=== PATIENT | male | born 1995 | race Caucasian/White ===

== ENCOUNTER 2023-04-03 19:21 | Emergency (ER) | payer MEDICARE, MEDICAID, OTHER, SELFPAY ==
[2023-04-03 19:30] VITALS: BP 137/86; PULSE 111; RESP 18; TEMP 36.8; O2SAT 97; BMI 18.4
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
[2023-04-03 23:39] VITALS: BP 117/70; PULSE 110; RESP 18; TEMP 37.4; O2SAT 98
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
[2023-04-04 00:06] LABS: MANUAL DIFF FLAG NO
[2023-04-04 00:07] LABS: Basophils Absolute Auto 0.1 X10*3/uL (0.0-0.2); Basophils Percent Auto 0.6 % (0-2); Eosinophils Absolute Auto 0.1 X10*3/uL (0.0-0.4); Eosinophils Percent Auto 0.6 % (0-4); Hematocrit 48.3 % (42.0-52.0); Hemoglobin 17.3 g/dl (14.0-18.0); Imm Gran Abs Auto 0.06 X10*3/uL (0.00-0.03); Imm Gran Pct Auto 0.4 % (0.0-0.4); Lymphocytes Absolute Auto 3.3 X10*3/uL (1.2-4.9); Lymphocytes Percent Auto 23.4 % (20-40); Mean Corpuscular HGB Conc 35.8 g/dl (31.0-36.0); Mean Corpuscular Hemoglobin 30.4 pg (27.0-33.0); Mean Corpuscular Volume 84.7 fL (80.0-98.0); Mean Platelet Volume 9.1 fL (9.4-12.4); Monocytes Absolute Auto 0.7 X10*3/uL (0.1-1.2); Monocytes Percent Auto 4.7 % (2-11); Neutrophils Absolute Auto 9.8 x10*3/uL (2.0-8.3); Neutrophils Percent Auto 70.3 % (45-73); Platelet Count 384 X10*3/uL (160-400)
[2023-04-04 00:08] LABS: Appearance Urine Clear; Color Urine Yellow; Glucose Urine UA Negative (Negative); Leukocyte Esterase Urine Negative (Negative); Nitrite Urine Negative (Negative); Urine Blood Negative (Negative); Urine Ketones 15 mg/dL (Negative); Urine Protein Negative (Neg-Trace)
[2023-04-04] MEDS: cefTRIAXone sodium 500 MG, Lidocaine HCl 1 % MPF 1 ML IM (00:17)
[2023-04-04] MEDS: Doxycycline Monohydrate 100 MG CAPSULE PO (00:18)
[2023-04-04] MEDS: metroNIDAZOLE 500 MG TABLET PO (00:18)
[2023-04-04] MEDS: Post Exposure Medication Kit 1 KIT PO (00:18)
[2023-04-04 00:21] LABS: Alanine Aminotransferase 22 U/L (0-40); Albumin Level 4.6 g/dL (3.5-5.0); Alkaline Phosphatase 67 U/L (39-117); Anion Gap 15 (12-20); Aspartate Amino Transferase 19 U/L (5-37); Bilirubin Total 0.6 mg/dL (0.0-1.0); Blood Urea Nitrogen 10 mg/dL (9-16); Calcium 9.4 mg/dL (8.4-10.2); Carbon Dioxide 18 mmol/L (22-29); Chloride 111 mmol/L (96-108); Creatinine Clr Calc Pharmacy 103.8; Estimated Glomerular Filt Rate > 60; Glucose Random 87 mg/dL (60-115); Potassium 3.2 mmol/L (3.3-5.1); Sodium 141 mmol/L (135-145); Total Protein 7.4 g/dL (6.5-8.0)
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
--- NOTE | 2023-04-04 01:08 | PC.NURSE ---
Addendum entered by Faye Chen 04/04/23 01:09: instructions gone over with pt and pt step father. pt and step father verbalized understanding of instructions for post exposure kit Original Note: pt medicated according to mar. pt step father at bedside. pt calm and cooperative. pt provided with take home post exposure kit
[2023-04-04 08:26] LABS: HBS Num1 1.13 mIU/mL (0-7.99); HBc Num1 0.09 S/CO (0.00-0.79); HBsAGNum1 0.61 S/CO (0.00-0.99); HIV AB/AG Nonreactive (Nonreactive); HIV Num 1 0.06 S/CO (0.00-0.99); Hepatitis B Core Antibody Nonreactive (Nonreactive); Hepatitis B Surface Antigen Negative (Negative); ~HepC Num1 0.06 S/CO (0.00-0.79); ~Hepatitis B Surface Antibody NONREACTIVE (Nonreactive); ~Hepatitis C Antibody Nonreactive (Nonreactive)
[2023-04-04 08:37] LABS: Hepatitis A Antibody IgG REACTIVE (Nonreactive); ~Hepatitis A Antibody IgG 5.83 S/CO (0.00-0.99); ~Hepatitis A Antibody IgM Nonreactive (Nonreactive)
[2023-04-04 11:49] LABS: CT PCR NOT DETECTED (Not Detect.); NG PCR NOT DETECTED (Not Detect.)
[2023-04-05 08:27] LABS: Syphilis Screen Nonreactive (Nonreactive)
== END 2023-04-04 01:19 | disposition home or self-care (01) ==
PROVIDERS: Nurse Practitioner Family; Emergency Provider Emergency Medicine
DX: T74.21XA Adult sexual abuse, confirmed, initial encounter (principal); F84.0 Autistic disorder; Y07.59 Other non-family member, perpetrator of maltreatment and neglect
CPT/HCPCS: 0353U; 36415; 80053; 81003; 85025; 86704; 86706; 86708; 86709; 86780; 86803; 87340; 87389; 96372; 99284; J0696

== ENCOUNTER 2025-03-18 12:51 | Outpatient (AMB) | payer MEDICARE, MEDICAID, SELFPAY ==
[2025-03-18 13:04] VITALS: BP 104/68; PULSE 93; TEMP 36.8; O2SAT 98; BMI 19.6
--- NOTE | 2025-03-18 13:04 | MHC.OFFWIV ---
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, cough Patient Tobacco Use Status: Never used Tobacco Engineering Research Manager Required: No Allergies No Known Allergies Allergy (Verified 03/18/25 13:08) Medication List - Last Reconciled 03/18/25 by UTE Quintanilla-C benzonatate 100 mg PO bid-tid PRN 7 days cetirizine-pseudoephedrine 5-120 mg ER 1 tab PO BID 7 days polymyxin B sulf-trimethoprim 10,000 unit- 1 mg/mL 1 drp ophthalmic-Right QID 5 days Do you need a note to return to daycare/school/sports/work: Yes HPI HPI Comments History of Present Illness Details History - The patient is a 30-year-old male presenting with conjunctivitis and upper respiratory infection. - Conjunctivitis: Symptoms began yesterday with a gritty sensation and mild crusting noted upon waking. - The patient denies significant itchiness or blurry vision. - He has a dry cough and nasal congestion, with some relief from Benadryl. - The patient lives alone and reports no other individuals in the household are sick. - He is not a smoker. - He denies fever, chills, CP, SOB, abd pain, n/v/d, or COLLAZO. Physical Exam General: Cooperative, healthy appearing, comfortable and no acute distress Orientation/consciousness: Patient oriented x3 Limitations: No limitations Head: Normal to inspection Ears: Hearing grossly normal bilaterally, external ears normal and TM's normal bilaterally Nose: Normal external nose present, normal nares present, and no nasal discharge present. Face and sinus: Sinuses nontender to palpation. Mouth: Normal oral and palatal mucosa present and moist mucous membranes noted. Throat: Tonsils normal. Uvula is midline. Posterior oropharynx with erythema and no exudates. Eyes: PERRLA. EOMI. Sclera and conjunctiva is erythematous. No discharge noted. Neck: Normal visual inspection, full ROM. No lymphadenopathy noted. Respiratory: Clear to auscultation bilaterally. Normal respiratory effort, able to speak in complete sentences. No respiratory distress, not tachypneic, no tripod positioning and no use of accessory muscles. Cardiovascular: Regular rate and rhythm. Normal S1 and S2 Skin: No rashes or lesions noted Patient was informed and verbally consented to the use of an ambient scribe for clinic note documentation during this visit [facility] Social History Alcohol intake: never Patient Tobacco Use Status: Never used Tobacco Review of Systems Const All systems reviewed & are unremarkable except as noted in HPI and below Physical Exam Vital Signs: Last Vital Signs Temp 98.2 F 03/18/25 13:04 Pulse 93 03/18/25 13:04 BP 104/68 03/18/25 13:04 Pulse Ox 98 03/18/25 13:04 Oxygen Delivery Method Room Air 03/18/25 13:04 BMI result Body Mass Index 19.6 Assessment & Plan Assessment & Plan (1) Conjunctivitis: Code(s): H10.9 - Unspecified conjunctivitis Qualifiers: Conjunctivitis type: acute Acute conjunctivitis type: bacterial Laterality: left Qualified Code(s): H10.32 - Unspecified acute conjunctivitis, left eye (2) Cough: Code(s): R05.9 - Cough, unspecified Qualifiers: Cough type: acute Qualified Code(s): R05.1 - Acute cough Plan Plan - Prescribe eye drops for conjunctivitis to alleviate symptoms. - Prescribe cough medicine and a decongestant to manage symptoms of the upper respiratory infection. - VSS, pt well appearing - follow up with PCP Medications: New polymyxin B sulf-trimethoprim 10,000 unit- 1 mg/mL while awake 1 drp ophthalmic-Right QID 10 mL 0RF 5 days Sara Jenkins PA-C benzonatate 100 mg PO bid-tid PRN 21 caps 0RF Cough 7 days Sara Jenkins PA-C cetirizine-pseudoephedrine 5-120 mg ER 1 tab PO BID 14 tabs 0RF 7 days Sara Jenkins PA-C Discontinued doxycycline hyclate Discontinued Reason: Patient no longer taking 100 mg PO BID 13 caps 0RF Amna Beauchamp MA metronidazole Discontinued Reason: Patient no longer taking 500 mg PO BID 13 tabs 0RF Amna Beauchamp MA Coding Level of Care Code Est Pt Level 4 (67943) Diagnoses Acute bacterial conjunctivitis of left eye H10.32 Conjunctivitis type: acute Acute conjunctivitis type: bacterial Laterality: left Acute cough R05.1 Cough type: acute
--- OUTSIDE RECORDS SUMMARY | 2025-03-18 13:34 | XMS_ITS | Encounter Summary ---
Author Organization [facility] Address [address] [place] [phone] Phone Care Team Providers Care Guard Rail Installer Name Role Phone Darlene Barnes MD Primary Care Provider [phone] Encounter Details Date Type Department Care Team (Late st Contact Info) Description 06/08/2011 Conversion Encounter [facility] [address] [place] [address] [place] [phone] Social History Tobacco Use Types Packs/Day Years Used Date Smoking Tobacco: Never Assessed Sex and Gender Information Value Date Recorded Sex Assigned at Not on file Legal Sex Male 3:07 PM EDT Gender Identity Not on file Sexual Orientation Not on file documented as of this encounter Plan of Treatment Not on file documented as of this encounter Visit Diagnoses Not on filedocumented in this encounter Care Teams Guard Rail Installer Relationship Specialty Start Date End Date Darlene Barnes MD [address] [place] [address] PCP - General 12/11/17 documented as of this encounter
--- OUTSIDE RECORDS SUMMARY | 2025-03-18 13:34 | XMS_ITS | Clinical Summary ---
Author Organization [facility] [address] [place] [address] [place] [address] Phone Care Team Providers Care Ball Ender Name Role Phone Cynthia Bullock MD Primary Care Provider Allergies Active Allergy Reactions Criticality Noted Date Comments Levonorgestrel-Ethinyl Estrad 2024 Medications No known medications Active Problems Problem Noted Date Diagnosed Date Elevated LFTs 06/20/2023 Overview (07/23/2024): mild Dandruff in adult 11/07/2020 Autism 12/07/2016 Overview (07/23/2024): Asperger's Encounters Date Type Department Care Team Description 01/14/2025 1:30 PM EDT Office Visit Adult Medicine [address] [phone] Meche Salas PA Annual physical exam (Primary Dx); Elevated LFTs; Lipid screening; Need for hepatitis C screening test from Last 3 Months Immunizations Name Administration Dates Next Due DTP 09/14/1999, 7,1996,06/30,1996 [id number] (Pentacel) 2mo to less than 5yo 03/02/1997,1996,1996,05/01 Hepatitis B Pediatric (Enger ix B; Recombivax HB) to less than 20 yo 1996,1996,1996 Influenza Quadravalent, MDCK , 0.5ml, preservative free (Flucelvax) 6mo and older 06/19/2023 Influenza trivalent, with pr eservative (Fluzone; Afluria) 6mo and older 05/17/2020 MMR, measles mumps and rubel la Live (Priorix; M-M-R II) 12mo and older 03/14/2000,06/01/1997 Meningococcal MCV4P 02/28/2009 OPV 03/14/2000, 7,1996,05/01 Td Tetanus diptheria (Tdvax) 7yo and older 11/07/2020 Tdap Tetanus diptheria acell ular pertussis (Boostrix; Adacel) 7yo and older 02/28/2009 Varicella live (Varivax) 12m o and older 02/28/2009,03/02/1997 Surgical History Surgery Date Site/Laterality Comments NO PAST SURGERIES PROCEDURE: DENIES PREVIOUS SURGERY Medical History Medical History Date Comments Autism 12/07/2016 Asperger's Family History Medical History Relation Name Comments Other: Endocarditis Father 2002 Breast cancer Mother depression. no nhodgkins lymhpoma, CVA, passed 65 Pancreatic cancer Mother's side great aunt Relation Name Status Comments Brother x 1 Alive Father Maternal Grandfather Maternal Grandmother Mother Mother's side great aunt Paternal Grandfather Paternal Grandmother Sister x 1 Alive Social History Tobacco Use Types Packs/Day Years Used Date Smoking Tobacco: Never Smokeless Tobacco: Never Alcohol Use Standard Drinks/Week Comments No 0 (1 standard drink = 0.6 oz pur e alcohol) Housing Instability Answer Date Recorde d Are you worried that in the next 2 months you may not have stable housing? No 01/14/2025 Food Access & Nutrition Answer Date Rec orded Do you have access to a vari ety of food including fruits and vegetables? Yes 01/14/2025 Access to Healthcare Answer Date Record ed Within the last 3 months, oh w many times did you visit the emergency department for your medical care? 0 01/14/2025 Health Literacy Answer Date Recorded How often do you need to hav e someone help you when you read instructions, pamphlets, or other written material from your doctor or pharmacy? Sometimes 01/14/2025 Caregiver: How often do you need to have someone help you when you read instructions, pamphlets, or other written material from your doctor or pharmacy? Not on file 01/14/2025 Financial Risk Answer Date Recorded How hard is it for you to pa y for the very basics like food, housing, medical care, and air conditioning / heating? Not very hard 01/14/2025 Transportation Answer Date Recorded Has the lack of transportati on kept you from meetings, work, or from getting things needed for daily living? No Has the lack of transportati on kept you from medical appointments or from getting medications? No 01/14/2025 Social Isolation Answer Date Recorded How often do you feel lonely or isolated from th ose around you? Never 01/14/2025 Food Risk Answer Date Recorded Within the past 12 months we worried whether our food would run out before we got money to buy more. Never true 01/14/2025 Within the past 12 months th e food we bought just didn't last and we didn't have money to get more. Never true 01/14/2025 Dependent Care Answer Date Recorded Do you need help finding or paying for care for your loved ones. For example, child welfare manager or elderly care for an older adult? No 01/14/2025 Education Answer Date Recorded Do you think completing more education or training, like finishing a GED, going to college, or learning a trade, would be helpful for you? Yes 01/14/2025 Employment and Income Answer Date Recor ded During the last four weeks, have you been actively looking for work? No 01/14/2025 Living Situation Answer Date Recorded What is your living situation? 0 01/14/2025 Education Answer Date Recorded What is the highest level of school you have completed or the highest degree you have received? 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 Not on file Not on file Not on file Obstetrics History Last Filed Vital Signs Vital Sign Reading Time Taken Comments Blood Pressure 104/74 01/14/2025 1:37 PM EDT Pulse 77 01/14/2025 1:37 PM EDT Temperature 36.4 C (97.6 F) 01/14/2025 1:37 PM EDT Respiratory Rate 14 01/14/2025 1:37 PM EDT Oxygen Saturation 99% 01/14/2025 1:37 PM EDT Inhaled Oxygen Concentration - - Weight 53.5 kg (118 lb) 01/14/2025 1:37 PM EDT Height 163.8 cm (5' 4.5 ) 06/19/2023 9:43 AM EST Body Mass Index 19.94 06/19/2023 9:43 AM EST Plan of Treatment Upcoming Encounters Date Type Department Care Team (Late st Contact Info) Description 02/16/2026 3:00 PM EDT Office Visit Adult Medicine [facility] [address] [place] [phone] Cynthia Bullock MD [address] [place] [address] Health Maintenance Due Date Last Done Comments HIV Screening 07/14/2022 Medicare Annual Wellness Visit 07/14/2022 COVID-19 Vaccine ( season) 2024 10/05/2020, 09/14/2020 Influenza Vaccine (#1) 2025 , 05/17/2020, 05/09/2013, Additional history exists Social Influencers of Health Screening 01/14/2026 01/14/2025 Cholesterol Screening (Lipid Panel) 01/14/2030 01/14/2025, 06/19/2023 DTaP,Tdap,and Td Vaccines (8 - Td or Tdap) 11/07/2030 11/07/2020, 02/28/2009, 03/14/2000, Additional history exists Hepatitis B Vaccines Completed 1996, 1996, 1996 HIB Vaccines Completed 03/02/1997, 02/03, 1996, Additional history exists IPV Vaccines Completed 03/14/2000, 02/03, 1996, Additional history exists MMR Vaccines Completed 03/14/2000, 06/01/1997 Meningococcal ACWY Vaccine Aged Out 02/28/2009 N o longer eligible based on patient's age to complete this topic Varicella Vaccines Completed 02/28/2009, 03/02/1997 Hepatitis A Vaccines Completed 10/06/2012, 09/14/19 12 Depression Screening Completed 01/14/2025 Hepatitis C Screening Completed 01/14/2025 HPV Vaccines Aged Out No longer eligi ble based on patient's age to complete this topic Meningococcal B Vaccine Aged Out No l onger eligible based on patient's age to complete this topic Pneumococcal Vaccine: Pediatrics (0 to 5 Years) and At-Risk Patients (6 to 49 Years) Aged Out No longer eligible based on patient's age to complete this topic RSV Immunization Patients Under 20 months Aged Out No longer eligible based on patient's age to complete this topic Procedures Procedure Name Priority Date/Time Associated Diagnosis Comments COMPLETE BLOOD COUNT Routine 01/14/2025 2:40 PM EDT Annual physical exam COMPREHENSIVE METABOLIC PANEL Routine 01/14/2025 2:40 PM EDT Elevated LFTs LIPID PANEL WITH REFLEX TO DIRECT LDL Routine 01/14/2025 2:40 PM EDT Lipid screening HEPATITIS C ANTIBODY Routine 01/14/2025 2:40 PM EDT Need for hepatitis C screening test from Last 3 Months Results * Hepatitis C antibody (01/14/2025 2:40 PM EDT) Hepatitis C Antibody Negative Negative LAB CHEMISTRY METHOD 01/14/2025 6:[address] [facility] Blood Venous blood specimen / Unknown Venipuncture / Unknown 01/14/2025 2:40 PM EDT 01/14/2025 2:40 PM EDT us Meche UNGER LAB BLOOD ORDERABLES Final Re sult [facility] [address] [place] [address], [place] [phone] * Lipid panel with reflex to direct LDL (01/14/2025 2:40 PM EDT) Cholesterol 124 0 - 200 mg/dL LAB CHEMISTRY METHOD 01/14/2025 5:[address] [facility] Triglycerides 56 0 - 150 mg/dL LAB CHEMISTRY METHOD 01/14/2025 5:[address] [facility] HDL 55 >=40 mg/dL LAB CHEMISTRY METHOD 01/14/2025 5:[address] [facility] LDL Calculated 58 0 - 100 mg/dL LAB CHEMISTRY METHOD 01/14/2025 5:[address] [facility] VLDL Cholesterol Silvio 11.2 mg/dL LAB CHEMISTRY METHOD 01/14/2025 5:[address] [facility] Non HDL Chol. (LDL+VLDL) 69 <145 mg/dL LAB CHEMISTRY METHOD 01/14/2025 5:[address] [facility] Chol/HDL Ratio 2.3 0.0 - 4.4 LAB CHEMISTRY METHOD 01/14/2025 5:[address] [facility] Blood Venous blood specimen / Unknown Venipuncture / Unknown 01/14/2025 2:40 PM EDT 01/14/2025 2:40 PM EDT us Meche UNGER LAB BLOOD ORDERABLES Final Re sult [facility] [address] [place] [address], [place] [phone] * Complete blood count (01/14/2025 2:40 PM EDT) WBC 6.0 4.8 - 10.8 K/[facility] HEMETOLOGY METHOD 01/14/2025 4:[address] [facility] RBC 5.50 4.50 - 5.50 M/[facility] HEMETOLOGY METHOD 01/14/2025 4:[address] [facility] Hemoglobin 16.9 13.5 - 17.5 g/dL LAB HEMETOLOGY METHOD 01/14/2025 4:[address] [facility] Hematocrit 50.8 42.0 - 54.0 % LAB HEMETOLOGY METHOD 01/14/2025 4:[address] [facility] MCV 91.9 79.0 - 98.0 FL LAB HEMETOLOGY METHOD 01/14/2025 4:[address] [facility] MCH 30.6 27.0 - 32.0 pcg LAB HEMETOLOGY METHOD 01/14/2025 4:[address] [facility] MCHC 33.3 32.0 - 37.0 g/dL LAB HEMETOLOGY METHOD [facility] RDW 12.2 11.0 - 15.0 % LAB HEMETOLOGY METHOD 01/14/2025 4:[address] [facility] Platelets 318 130 - 400 K/mcL LAB HEMETOLOGY METHOD 01/14/2025 4:[address] [facility] MPV 9.8 7.0 - 11.0 FL LAB HEMETOLOGY METHOD 01/14/2025 4:47 PM [facility] NRBC 0.0 <1.0 % LAB HEMETOLOGY METHOD 01/14/2025 4:[address] [facility] NRBC Absolute 0.00 <0.10 K/mcL LAB HEMETOLOGY METHOD 01/14/2025 4:[address] [facility] Blood Venous blood specimen / Unknown Venipuncture / Unknown 01/14/2025 2:40 PM EDT 01/14/2025 2:40 PM EDT Meche UNGER LAB BLOOD ORDERABLES Final Re sult [facility] [address] [place] [address], [place] [phone] * Comprehensive metabolic panel (01/14/2025 2:40 PM EDT) Sodium 142 133 - 145 mmol/L LAB CHEMISTRY METHOD 01/14/2025 5:05 PM [facility] Potassium 4.3 3.5 - 5.5 mmol/L LAB CHEMISTRY METHOD 01/14/2025 5:05 PM [facility] Chloride 108 96 - 110 mmol/L LAB CHEMISTRY METHOD 01/14/2025 5:05 PM [facility] CO2 26 21 - 32 mmol/L LAB CHEMISTRY METHOD 01/14/2025 5:05 PM [facility] Anion Gap 8 3 - 11 LAB CHEMISTRY METHOD 01/14/2025 5:05 PM [facility] Glucose 82 70 - 100 mg/dL LAB CHEMISTRY METHOD 01/14/2025 5:05 PM [facility] BUN 20 5 - 25 mg/dL LAB CHEMISTRY METHOD 01/14/2025 5:05 PM [facility] Creatinine 0.90 0.70 - 1.30 mg/dL LAB CHEMISTRY METHOD 01/14/2025 5:05 PM [facility] eGFR 119 >=60 mL/min/1. 73m2 LAB CHEMISTRY METHOD 01/14/2025 5:05 PM [facility] Comment:Calculation based on the Chronic Kidney Disease Epidemiology Collaboration (CKD-EPI) equation refit without adjustment for race. BUN/Creatinine Ratio 22.2 LAB CHEMISTRY METHOD 01/14/2025 5:05 PM [facility] Calcium 8.9 8.5 - 10.5 mg/dL LAB CHEMISTRY METHOD 01/14/2025 5:05 PM [facility] AST (SGOT) 19 10 - 42 unit/L LAB CHEMISTRY METHOD 01/14/2025 5:[address] [facility] ALT (SGPT) 29 10 - 60 unit/L LAB CHEMISTRY METHOD 01/14/2025 5:[address] [facility] Alkaline Phosphatase 66 42 - 121 unit/L LAB CHEMISTRY METHOD 01/14/2025 5:[address] [facility] Total Protein 6.9 6.0 - 8.0 g/dL LAB CHEMISTRY METHOD 01/14/2025 5:[address] [facility] Albumin 4.2 3.2 - 5.0 g/dL LAB CHEMISTRY METHOD 01/14/2025 5:[address] [facility] Total Bilirubin 1.1 0.0 - 1.4 mg/dL LAB CHEMISTRY METHOD 01/14/2025 5:[address] [facility] Blood Venous blood specimen / Unknown Venipuncture / Unknown 01/14/2025 2:40 PM EDT 01/14/2025 2:40 PM EDT us Meche UNGER LAB BLOOD ORDERABLES Final Re sult [facility] [address] [place] [address], from Last 3 Months Insurance MEDICARE MEDICAID - [place] Care Teams Ball Ender Relationship Specialty Start Date End Date Cynthia Bullock MD [address] [place] [address] PCP - General Internal Medicine 06/09/21
== END 2025-03-18 14:15 | disposition home or self-care (01) ==
PROVIDERS: Visit Provider Physician Assistant Medical
DX: H10.32 Unspecified acute conjunctivitis, left eye (principal); R05.1 Acute cough

== ENCOUNTER → 2025-03-18 12:51 | Outpatient (BNVA) | payer MEDICARE, MEDICAID, OTHER, SELFPAY | PROVIDERS: Visit Provider Physician Assistant Medical | DX: H10.32 Unspecified acute conjunctivitis, left eye (principal); R05.1 Acute cough | CPT/HCPCS: 99212 ==